=== PATIENT | female | born 1955 | race Caucasian/White ===

== ENCOUNTER 2017-11-17 11:40 | Emergency (ER) | payer BC, OTHER ==
[~2017-11-17] VITALS: Ht 147.3 cm; Wt 76.7 kg
[~2017-11-17 11:40] MED LIST: DIOVAN160 MG
[2017-11-17] MEDS ORDERED: HYDROCODONE/APAP 7.5MG-325MG 1 EA TAB PO STA (12:13)
--- NOTE | 2017-11-17 14:27 | Diagnostic Imaging Report ---
PROCEDURE: Frontal and lateral views of the chest. COMPARISON: DX, CHEST SINGLE (PORTABLE), 07/26/2014, 4:31. INDICATIONS: COUGH, FEVER, LEFT SIDE CHEST PAIN FINDINGS: Lines/tubes: None. Lungs: The lungs are well inflated and clear. There is no evidence of pneumonia or pulmonary edema. Pleura: There is no pleural effusion or pneumothorax. Heart and mediastinum: The heart and the mediastinum are normal. Bones: No acute bony abnormality. IMPRESSION: 1. No acute cardiopulmonary abnormalities. Tito Knowles M.D. Dictated by: Tito Knowles M.D. on 11/17/2017 at 14:36 Electronically approved by: Tito Knowles M.D. on 11/17/2017 at 14:36
[2017-11-17] MEDS ORDERED: HYDROCODONE/APAP 7.5MG-325MG 1 EA TAB ONE (15:33)
[2017-11-17 15:42] VITALS: BP 168/95
== END 2017-11-17 16:35 | disposition home or self-care (01) ==
LOC: ER 11:40
DX: R05 Cough (principal); R06.00 Dyspnea, unspecified; R09.89 Other specified symptoms and signs involving the circulatory and respiratory systems; I10 Essential (primary) hypertension
CPT/HCPCS: 71020; 87400; 99283